=== PATIENT | male | born 1990 | race American Indian/Alaskan Native ===

== ENCOUNTER 2021-01-09 13:15 | Emergency (ER) | payer SELFPAY ==
[2021-01-09 13:23] VITALS: BP 116/65
--- NOTE | 2021-01-09 13:58 | Emergency Department Report ---
HPI - General Chief Complaint: Fall Time Seen by Provider: 01/09/21 13:51 - HPI HPI: 30-year-old -[place] male presents to the emergency department with complaint of pain to the right hip and leg after a fall in the [place] last night. Patient says that he was walking down one of the aisle and slipped on some lotion or Vaseline and fall onto that right side. Currently his pain is about 5 out of 10 in intensity. It worsens with movement and ambulation. No past medical history. He took some Tylenol for his symptoms without any relief. ED Past Medical Hx - Past Medical History Previous Medical History?: No - Surgical History Additional Surgical History: RIGHT FEMUR FRACTURE - Medications Home Medications: Home Medications Medication Instructions Recorded Confirmed Last Taken Type Ibuprofen [Motrin 600 MG tab] 600 mg PO Q8H PRN #20 tablet 01/09/21 Unknown Rx ED Review of Systems ROS: Stated complaint: FALL INJURY RIGHT LEG Other details as noted in HPI Comment: All other systems reviewed and negative Constitutional: denies: chills, fever Gastrointestinal: denies: abdominal pain, vomiting Musculoskeletal: arthralgia, myalgia. denies: back pain, joint swelling Neurological: denies: numbness, paresthesias Physical Exam - Physical Exam Vital Signs: Vital Signs 01/09/21 13:21 Temperature 98.3 F Pulse Rate 84 Respiratory 20 Rate Blood Pressure 116/65 O2 Sat by Pulse 96 Oximetry Physical Exam: GENERAL: The patient is well-developed well-nourished. HENT: Normocephalic. Atraumatic. Patient has moist mucous membranes. EYES: Extraocular motions are intact. NECK: Supple. Trachea is midline. ABDOMEN: Abdomen is soft, nontender. SKIN: Skin is warm and dry. NEURO: The patient is awake, alert, and oriented. The patient is cooperative. The patient has no focal neurologic deficits. Normal speech. MUSCULOSKELETAL: Tenderness to palpation along the right lower extremity. There is no limitation range of motion. ED Course Vital Signs 01/09/21 13:21 Temperature 98.3 F Pulse Rate 84 Respiratory 20 Rate Blood Pressure 116/65 O2 Sat by Pulse 96 Oximetry ED Medical Decision Making - Radiology Data Radiology results: image reviewed interpreted by me: X-ray of the right femur and pelvis does not show any fracture, dislocation, or any acute process. - Medical Decision Making This patient presents to the emergency department with pain to the right thigh, hip and right side of the pelvis after a fall last night. He did not hit his head or have any loss of consciousness. He denies any back pain. X-ray of the femur and pelvis does not show any fracture, dislocation, or any acute process. He was given ibuprofen and will be discharged home to follow-up with an orthopedist. Critical Care Time: No Critical care attestation.: If time is entered above; I have spent that time in minutes in the direct care of this critically ill patient, excluding procedure time. ED Disposition Clinical Impression: Right leg pain Fall Qualifiers: Encounter type: initial encounter Qualified Code(s): W19.XXXA - Unspecified fall, initial encounter Disposition: HOME / SELF CARE / HOMELESS Is pt being admited?: No Condition: Stable Instructions: Contusion, Musculoskeletal Pain Additional Instructions: Please follow-up with a primary care physician in the next few days. I am giving you a referral for a local orthopedist, Dr. Marie, to follow-up regarding your leg pain. Return to the emergency department with any worsening of your symptoms, new or concerning symptoms not addressed during this current emergency department visit, or with any acute distress. Prescriptions: Ibuprofen [Motrin 600 MG tab] 600 mg PO Q8H PRN #20 tablet PRN Reason: Pain Referrals: CLINTON MARIE MD [Staff Physician] - 3-5 Days PRIMARY CARE, [Primary Care Provider] - 3-5 Days Forms: Work/School Release Form(ED)
--- NOTE | 2021-01-09 14:44 | XRay Report ---
PELVIS ONE VIEW INDICATION: fall, pain X 1 DAY AGO. COMPARISON: None. IMPRESSION: The pelvic bones are intact. No evidence for fracture, diastasis or bone lesion. The so ft tissues are unremarkable. RIGHT FEMUR 2 VIEWS INDICATION: fall, pain X 1 DAY AGO. COMPARISON: None. IMPRESSION: Previous internal fixation of the right femoral neck and shaft is evident. No acute oss eous abnormality or joint pathology is appreciated. The soft tissues are unremarkable. Signer Name: Cody Butterfield Jr, MD Signed: 01/09/2021 2:39 PM Workstation Name: [email or web address]
== END 2021-01-09 15:31 | disposition home or self-care (01) ==
LOC: ED 13:15
DX: M79.604 Pain in right leg (principal); W01.0XXA Fall on same level from slipping, tripping and stumbling without subsequent striking against object, initial encounter; Y93.89 Activity, other specified; Y92.89 Other specified places as the place of occurrence of the external cause; Y99.8 Other external cause status
CPT/HCPCS: 72170; 99283

== ENCOUNTER 2021-03-22 21:20 | Emergency (ER) | payer SELFPAY | END 2021-03-22 22:35 | disposition left against medical advice (07) | LOC: ED 21:20 | DX: R51.9 Headache, unspecified (principal); Z53.21 Procedure and treatment not carried out due to patient leaving prior to being seen by health care provider ==

== ENCOUNTER 2021-08-13 08:18 | Emergency (ER) | payer MEDICARE ==
--- NOTE | 2021-08-13 09:13 | XRay Report ---
CHEST 2 VIEWS INDICATION: SOB. COMPARISON: None. FINDINGS: Support devices: None. Heart: Within normal limits. Lungs/Pleura: No acute air space or interstitial disease. No significant pleural effusion. IMPRESSION: No acute findings. Signer Name: Chacorta Romero MD Signed: 08/13/2021 9:08 AM Workstation Name: [email or web address]
[2021-08-13 13:18] VITALS: BP 117/83
--- NOTE | 2021-08-13 13:26 | Emergency Department Report ---
ED Shortness of Breath HPI - General Chief Complaint: Dyspnea/Respdistress Stated Complaint: DIFFICULTY BREATHING (MOLD) Time Seen by Provider: 08/13/21 13:09 Source: patient Mode of arrival: Ambulatory Limitations: No Limitations - History of Present Illness Initial Comments: Patient is a 31-year-old male presenting with complaint of shortness of breath. States his apartment is infested with mold and states he has difficulty breathing there. He denies any fever or chills. No past respiratory issues. - Related Data Previous Rx's Medication Instructions Recorded Last Taken Type Ibuprofen [Motrin 600 MG tab] 600 mg PO Q8H PRN #20 tablet 01/09/21 Unknown Rx Albuterol Mdi (or & Nicu Only) 1 puff IH PRN PRN #8.5 gram 08/13/21 Unknown Rx [ProAir HFA Inhaler] Allergies Allergy/AdvReac Type Severity Reaction Status Date / Time No Known Allergies Allergy Unverified 01/09/21 13:17 ED Review of Systems ROS: Stated complaint: DIFFICULTY BREATHING (MOLD) Other details as noted in HPI Constitutional: denies: chills, fever Respiratory: shortness of breath. denies: cough, wheezing Cardiovascular: denies: chest pain, palpitations Gastrointestinal: denies: abdominal pain, nausea, diarrhea Musculoskeletal: denies: back pain, joint swelling, arthralgia Skin: denies: rash, lesions Neurological: denies: headache, weakness, paresthesias Psychiatric: denies: anxiety, depression ED Past Medical Hx - Surgical History Additional Surgical History: RIGHT FEMUR FRACTURE - Medications Home Medications: Home Medications Medication Instructions Recorded Confirmed Last Taken Type Ibuprofen [Motrin 600 MG tab] 600 mg PO Q8H PRN #20 tablet 01/09/21 Unknown Rx Albuterol Mdi (or & Nicu Only) 1 puff IH PRN PRN #8.5 gram 08/13/21 Unknown Rx [ProAir HFA Inhaler] ED Physical Exam - General Limitations: No Limitations General appearance: alert, in no apparent distress - Head Head exam: Present: atraumatic, normocephalic - Neck Neck exam: Present: normal inspection - Respiratory Respiratory exam: Present: normal lung sounds bilaterally. Absent: respiratory distress - Cardiovascular Cardiovascular Exam: Present: regular rate, normal rhythm, normal heart sounds - GI/Abdominal GI/Abdominal exam: Present: soft. Absent: distended, tenderness - Rectal Rectal exam: Present: deferred - Neurological Exam Neurological exam: Present: alert, oriented X3 - Psychiatric Psychiatric exam: Present: normal affect, normal mood - Skin Skin exam: Present: warm, dry, intact, normal color ED Course Vital Signs 08/13/21 08/13/21 08:37 13:17 Temperature 98.9 F 97.9 F Pulse Rate 95 H 98 H Respiratory 16 18 Rate Blood Pressure 135/88 117/83 [Left] O2 Sat by Pulse 98 100 Oximetry ED Medical Decision Making - Medical Decision Making Chest x-ray unremarkable. Patient satting 100% on room air. He does not appear to be in any acute respiratory distress and is speaking in full sentences. I instructed him to avoid further exposure to the mold. He is stable for discharge home with return precautions. Critical care attestation.: If time is entered above; I have spent that time in minutes in the direct care of this critically ill patient, excluding procedure time. ED Disposition Clinical Impression: Dyspnea, Mold exposure Disposition: 01 HOME / SELF CARE / HOMELESS Is pt being admited?: No Condition: Stable Instructions: Shortness of Breath, Adult, [id number] Time of Disposition: 13:25
== END 2021-08-13 13:48 | disposition home or self-care (01) ==
LOC: ED 08:18
DX: T75.89XA Other specified effects of external causes, initial encounter (principal); R06.00 Dyspnea, unspecified; X58.XXXA Exposure to other specified factors, initial encounter; Y93.9 Activity, unspecified; Y92.89 Other specified places as the place of occurrence of the external cause; Y99.8 Other external cause status
CPT/HCPCS: 71046; 99283